=== PATIENT | female | born 1990 | race Caucasian/White ===

== ENCOUNTER → 2018-04-15 | Outpatient (CLI) | payer OTHER ==
[2018-04-15 17:31] LABS: BASO % 0.3 % (0.0-1.0); EOS # 0.2 10^3/uL (0.0-0.50); EOS % 1.4 % (0.0-3.0); HEMATOCRIT 40.6 % (36.0-47.0); HEMOGLOBIN 13.6 g/dl (12.0-15.5); IMMATURE GRANULOCYTE % 0.4 % (0-3.0); LYMPH # 2.7 10^3/uL (1.5-6.5); LYMPH % 23.9 % (24.0-44.0); MEAN CORPUSCULAR HGB CONC 33.5 g/dl (32.0-36.5); MEAN CORPUSCULAR VOLUME 89.6 fl (80.0-96.0); MONO # 0.6 10^3/uL (0.0-0.8); MONO % 5.2 % (0.0-5.0); NEUTROPHILS # 7.8 10^3/uL (1.8-7.7); NEUTROPHILS % 68.8 % (36.0-66.0); PLATELET COUNT, AUTOMATED 304 10^3/uL (150-450); RED BLOOD COUNT 4.53 10^6/uL (4.00-5.40); RED CELL DISTRIBUTION WIDTH 12.1 % (11.5-14.5); WHITE BLOOD COUNT 11.3 10^3/uL (4.0-10.0)
[2018-04-15 17:44] LABS: ALT/SGPT 18 U/L (12-78); AST/SGOT 12 U/L (7-37); BILIRUBIN,TOTAL 0.3 MG/DL (0.2-1.0); CREATININE FOR GFR 0.54 MG/DL (0.55-1.30); GLOMERULAR FILTRATION RATE > 60.0 (>60); LDH LACTATE DEHYDROGENASE 162 U/L (84-246); URIC ACID 2.4 MG/DL (2.6-6.0)
[2018-04-15 17:51] LABS: TOTAL PROTEIN,RANDOM URINE 14.5 MG/DL (0.0-12.0)
[2018-04-15 19:46] LABS: CHLAMYDIA DNA AMPLIFICATION NEGATIVE (NEGATIVE); GC DNA AMPLIFICATION NEGATIVE (NEGATIVE)
[2018-04-18 09:12] LABS: RUBELLA IgG QUALITATIVE IMMUNE (IMMUNE)
[2018-04-18 09:15] LABS: HBsAg Prenatal NEGATIVE (NEGATIVE)
[2018-04-18 09:42] LABS: HEPATITIS C VIRUS ABY INDEX 0.1 INDEX (<0.8)
[2018-04-18 09:43] LABS: HIV 1&2 SCREEN CENTAUR NEGATIVE (NEGATIVE)
== END ==
LOC: M SMT 13:49
DX: Z34.81 Encounter for supervision of other normal pregnancy, first trimester (principal); O16.1 Unspecified maternal hypertension, first trimester; Z3A.10 10 weeks gestation of pregnancy
CPT/HCPCS: 84460

== ENCOUNTER → 2018-08-31 | Outpatient (CLI) | payer OTHER ==
[2018-08-31 13:35] LABS: BASO % 0.2 % (0.0-1.0); EOS # 0.2 10^3/uL (0.0-0.50); EOS % 1.6 % (0.0-3.0); HEMATOCRIT 37.5 % (36.0-47.0); HEMOGLOBIN 12.2 g/dl (12.0-15.5); IMMATURE GRANULOCYTE % 1.5 % (0-3.0); LYMPH % 16.3 % (24.0-44.0); MEAN CORPUSCULAR HEMOGLOBIN 30.2 pg (27.0-33.0); MEAN CORPUSCULAR HGB CONC 32.5 g/dl (32.0-36.5); MEAN CORPUSCULAR VOLUME 92.8 fl (80.0-96.0); MONO # 0.6 10^3/uL (0.0-0.8); MONO % 5.2 % (0.0-5.0); NEUTROPHILS # 9.3 10^3/uL (1.8-7.7); NEUTROPHILS % 75.2 % (36.0-66.0); PLATELET COUNT, AUTOMATED 289 10^3/uL (150-450); RED BLOOD COUNT 4.04 10^6/uL (4.00-5.40); RED CELL DISTRIBUTION WIDTH 11.9 % (11.5-14.5); WHITE BLOOD COUNT 12.4 10^3/uL (4.0-10.0)
[2018-08-31 13:45] LABS: GLUCOSE CHALLENGE TEST 1 HOUR 70 MG/DL (LESS THAN 140)
== END ==
LOC: M SMT 08:59
DX: Z34.83 Encounter for supervision of other normal pregnancy, third trimester (principal); Z36.89 Encounter for other specified antenatal screening; Z3A.30 30 weeks gestation of pregnancy
CPT/HCPCS: 82950

== ENCOUNTER → 2018-09-19 | Outpatient (CLI) | payer OTHER | LOC: M SMT 11:02 | DX: Z34.83 Encounter for supervision of other normal pregnancy, third trimester (principal); Z3A.33 33 weeks gestation of pregnancy | CPT/HCPCS: 76816 ==

== ENCOUNTER → 2018-10-04 | Outpatient (REF) | payer OTHER | LOC: M LAB REF 13:03 | PROVIDERS: ATTEND Advanced Practice Midwife | DX: Z34.83 Encounter for supervision of other normal pregnancy, third trimester (principal) ==

== ENCOUNTER 2018-10-29 05:01 | Inpatient (IN) | payer OTHER ==
[2018-10-29] VITALS (39 sets, daily range): BP systolic 107–186; BP diastolic 54–97
[~2018-10-29] VITALS: Ht 180.3 cm; Wt 128.8 kg
[2018-10-29] MEDS ORDERED: LACTATED RINGER'S 1000 ML IV STA (05:44)
[2018-10-29] MEDS ORDERED: LR 1,000 ML IV SCH (05:44)
[2018-10-29] MEDS ORDERED: OXYTOCIN DRIP 30 UNITS in APPROPRIATE DILUENT 1 EA IV SCH ×2 (05:45→13:42)
--- NOTE | 2018-10-29 05:58 | HPEPDOC ---
Obstetrical History & Physical General Date of Admission Oct 29, 2018 at 05:44 History of Present Illness Chief Complaint: LOF, term Information Provided By: Patient Age: 28 : 2 Term: 0 Pre-term: 1 Abortions: 0 Livin Care Care: Limited Care Dating Final EDC: Nov 05, 2018 Final EDC by: LMP EGA at Admission: 39 Antepartum Course Height (inches): 71 Pre- weight (lbs.): 232 Admission Weight (lbs.): 288 Past Medical History Past Obstetrical History : Past Obstetrical History: Primgravida (11/2016) Type of Delivery: Spontaneous Vaginal Del. Sex of : Male (6#12) Complications: Yes (PPROM @ 36 wks) ST[employer] History: No pertinent history Past Medical History Surgical History: Denies/None Family History Significant Family History: Diabetes, Heart disease Social History Marital Status: Family situation: Spouse/partner home Psychosocial History: No pertinent psych hx * Smoker: non-smoker Alcohol: Denies Drugs: denies Imunizations Tdap status: current Influenza Status: current Physical Examination Physical Examination GENERAL: Alert and oriented times three. BREAST: . ABDOMEN: Gravid and non-tender to touch. FETUS: Is vertex (VTX) by sterile vaginal examination (SVE), fetus is vertex (VTX) by Sg. HEART RATE: Regular rate and rhythm. LUNGS: Clear to auscultation (CTA). EXTREMITIES: No edema. No clonus. Deep tendon reflexes (DTRs) + 2. Pertinent Laboratoy Data Blood Type: A+ RBC Antibody Screen: Negative HIV: Negative Hepatitis B: Negative Hepatitis C: Negative Rapid Plasma Reagin: Nonreactive Rubella: Immune Chlamydia/Gonorrhea: Negative Group B Streptococcus: Negative Glucose Tolerance Test: 70 Anatomy Ultrasound Ultrasound Date: Jun 17, 2018 Placenta Location: Posterior Normal Anatomy: Yes Placenta Previa: No Estimated Weight (grams): 315 Other Ultrasounds 04/15/18 - dating 10+6 Steroid Therapy Steroid Therapy: No Vaginal Examination Dilation: 3 cm Effacement: 90% Station: -1 Cervical Consistency: Medium Cervical Position: Middle Presentation: Cephalic presentation Assessment Heart Rate (FHR): 150 Variability: Moderate Accelerations: Positive Decelerations: None Tocometer Contractions: Yes Frequency: irregular, every 3-7 min. Duration: less than 60 seconds Strength: palpated as moderate Assessment/Plan Assessment Breanne is a 28-year-old (G)2 para (P)0-1-0-1 at 39 weeks by 10-week trasocuco. Presents to Labor and Delivery (L&D) with reports of loss of clear fluid 0100 followed by onset irregular UC. Denies bleeding. Fetus active. Initial BP 139/95 Plan Admit and orient. Clerical Support Specialist and consent. Diet: clear liquids. Group B Streptococcus (GBS) negative. Labs and intravenous (IV) per unit protocol. Counseled on Pitocin and induction of labor (IOL). Lactated Ringers (LR): Bolus 500 mL, then at 125 mL/hr. Pt plans epidural Anticipate normal spontaneous delivery (). C-S as appropriate. Gracie Sanchez CNM Oct 29, 2018 05:58
[2018-10-29 07:02] LABS: HEMATOCRIT 37.3 % (36.0-47.0); HEMOGLOBIN 12.2 g/dl (12.0-15.5); MEAN CORPUSCULAR HGB CONC 32.7 g/dl (32.0-36.5); MEAN CORPUSCULAR VOLUME 88.6 fl (80.0-96.0); PLATELET COUNT, AUTOMATED 317 10^3/uL (150-450); RED BLOOD COUNT 4.21 10^6/uL (4.00-5.40)
[2018-10-29 07:22] LABS: TOTAL PROTEIN,RANDOM URINE 28.1 MG/DL (0.0-12.0)
[2018-10-29] MEDS ORDERED: FENTANYL 2MCG/ML ROPIVACAINE 0.2% IN 0.9% NACL 100ML IVBAG As Ordered ONE (07:22)
[2018-10-29 07:29] LABS: ALT/SGPT 16 U/L (12-78); BILIRUBIN,TOTAL 0.2 MG/DL (0.2-1.0); GLOMERULAR FILTRATION RATE > 60.0 (>60); LDH LACTATE DEHYDROGENASE 250 U/L (84-246); URIC ACID 3.4 MG/DL (2.6-6.0)
[2018-10-29] MEDS ORDERED: REFRIGERATOR IV KEYS XX PRN (07:30)
[2018-10-29] MEDS ORDERED: NALOXONE INJ 0.4 MG/1 ML VIAL (J2310) IV PRN (07:30)
[2018-10-29] MEDS ORDERED: ePHEDrine SULFATE 25 MG/5 ML(5MG/ML) SYRINGE IV PRN (07:30)
[2018-10-29] MEDS ORDERED: FENTANYL/ROPIVACAINE/NACL BAG 100 ML EPIDURAL SCH (07:30)
[2018-10-29] MEDS ORDERED: EPIDURAL/PCA KEYS XX PRN (07:30)
[2018-10-29] MEDS ORDERED: ONDANSETRON 4MG/2ML VIAL (J2405) IV PRN (07:30)
[2018-10-29] MEDS ORDERED: LACTATED RINGER'S 1000 ML IV PRN (07:30)
[2018-10-29] MEDS ORDERED: EPIDURAL COMMENT XX SCH (07:30)
[2018-10-29] MEDS ORDERED: diphenhydrAMINE INJ 50MG/ML VIAL (J1200) IV PRN (07:30)
[2018-10-29] MEDS ORDERED: PRENTAB9 PO (07:48)
[2018-10-29] MEDS: PRENATAL VITAMINS CHEWABLE TABLET PO SCH (09:00)
[2018-10-29] MEDS ORDERED: METHYLERGONOVINE MALEATE 0.2 MG TAB PO PRN (13:45)
[2018-10-29] MEDS ORDERED: ACETAMINOPHEN 500 MG TAB PO PRN (13:45)
[2018-10-29] MEDS ORDERED: DOCUSATE SODIUM 100 MG CAP PO PRN (13:45)
[2018-10-29] MEDS ORDERED: MEASLES,MUMPS,RUBELLA VACCINE INJ (MMR-II) (90707) SC SCH (13:45)
[2018-10-29] MEDS ORDERED: RHOGAM 300 MCG (1500 IU) INJ (J2790) IM SCH (13:45)
[2018-10-29] MEDS ORDERED: DIBUCAINE 1% OINTMENT 30GM TOP PRN (13:45)
[2018-10-29] MEDS ORDERED: MOM 30ML SUSPENSION UDC PO PRN (13:45)
[2018-10-30 06:00] VITALS: BP 144/78
--- NOTE | 2018-10-30 06:32 | DN ---
DATE OF DELIVERY: 10/29/2018 TIME OF : 1300 hours. GENDER: Female. SCORE: 8 and 9. WEIGHT: 4130 grams or 9 pounds 2 ounces. LACERATIONS: Second degree midline laceration. ESTIMATED BLOOD LOSS: 300 mL. COUNTS: 5 laparotomy sponges accounted for prior to and after delivery, 1 sharp removed from delivery field. ANESTHESIA: Epidural. DELIVERY NOTE: On 10/29/2018, at 1300 hours, Mrs. Hadley, a 28-year-old, 2, now para 2, had a spontaneous vaginal delivery of a liveborn female infant, score 8 and 9, weight was 4130 grams or 9 pounds 2 ounces. Head was delivered left occiput anterior (ELMA) followed by delivery of right anterior shoulder, left posterior shoulder and corpus. Cord was clamped times two. It was cut by the father of the baby under my direction. Infant was handed to mom with a good cry. Cord blood was obtained and placenta was then drained and delivered grossly intact. A premixed bag of 500 mL of normal saline with 30 units of Pitocin was bolused along with uterine massage until the uterus was firm. On inspection, there was a second degree midline laceration, which was repaired with #3-0 Vicryl Rapide. On re-inspection, the cervix, vagina and perineum was grossly intact and hemostatic. Mom and baby recovered in stable condition.
--- NOTE | 2018-10-30 07:59 | NUR ---
PPD#1 S: Doing well w/o complaints. Decreasing lochia, pain well control, + voids and + BF. O: vss, AF Gen: well appearing abd: soft, nttp with ff@u-1 A/P: PPD#1 s/p - stable -continue routine care -d/c plans for tomorrow Caren Thao MD
[2018-10-30] MEDS: PRENATAL VITAMINS CHEWABLE TABLET PO SCH (08:33)
[2018-10-30] MEDS: IBUPROFEN 800 MG TAB PO PRN ×2 (08:34→19:50)
[2018-10-30 18:00] VITALS: BP 140/79
[2018-10-31 05:49] VITALS: BP 145/85
[2018-10-31 08:03] LABS: HEMOGLOBIN 11.2 g/dl (12.0-15.5); MEAN CORPUSCULAR HEMOGLOBIN 29.2 pg (27.0-33.0); MEAN CORPUSCULAR VOLUME 91.1 fl (80.0-96.0); PLATELET COUNT, AUTOMATED 258 10^3/uL (150-450); RED BLOOD COUNT 3.84 10^6/uL (4.00-5.40); WHITE BLOOD COUNT 11.9 10^3/uL (4.0-10.0)
[2018-10-31] MEDS: PRENATAL VITAMINS CHEWABLE TABLET PO SCH (08:26)
[2018-10-31 08:27] LABS: ALT/SGPT 21 U/L (12-78); BILIRUBIN,TOTAL 0.1 MG/DL (0.2-1.0); CREATININE FOR GFR 0.56 MG/DL (0.55-1.30); GLOMERULAR FILTRATION RATE > 60.0 (>60); LDH LACTATE DEHYDROGENASE 232 U/L (84-246); URIC ACID 3.6 MG/DL (2.6-6.0)
[2018-10-31 10:00] VITALS: BP 144/102
[2018-10-31 10:25] VITALS: BP 146/82
[2018-10-31] MEDS ORDERED: MAPA500T2 PO (10:43)
[2018-10-31] MEDS ORDERED: COLA100C5 PO (10:43)
[2018-10-31] MEDS ORDERED: IBUP-1114 PO (10:43)
== END 2018-10-31 12:50 | disposition home or self-care (01) | DRG 560 ==
LOC: M LDO 05:01 → M LDI 05:44 → M OBS 15:45
PROVIDERS: ADMIT Advanced Practice Midwife; ATTEND Obstetrics & Gynecology
PROC: 10E0XZZ Delivery of Products of Conception, External Approach (ICD-10-PCS; principal; 2018-10-29)
PROC: 0KQM0ZZ Repair Perineum Muscle, Open Approach (ICD-10-PCS; 2018-10-29)
DX: O70.1 Second degree perineal laceration during delivery (principal); Z3A.39 39 weeks gestation of pregnancy; Z37.0 Single live birth

== ENCOUNTER → 2022-06-17 | Outpatient (REF) | payer OTHER ==
[~2022-06-17] MED LIST: COLA100C5 PO; IBUP-1114 PO; MAPA500T2 PO; PRENTAB9 PO
== END ==
LOC: M PLALAB 15:10
PROVIDERS: ATTEND Obstetrics & Gynecology
DX: Z12.4 Encounter for screening for malignant neoplasm of cervix (principal); R87.615 Unsatisfactory cytologic smear of cervix

== ENCOUNTER → 2022-09-16 | Outpatient (CLI) | payer OTHER ==
[2022-09-16 13:22] LABS: BASO # 0.1 10^3/uL (0.0-0.2); BASO % 0.6 % (0.0-1.0); EOS # 0.3 10^3/uL (0.0-0.5); EOS % 3.1 % (0.0-3.0); HEMATOCRIT 41.3 % (36.0-47.0); HEMOGLOBIN 13.4 g/dl (12.0-15.5); LYMPH # 3.2 10^3/uL (1.5-5.0); LYMPH % 35.7 % (24.0-44.0); MEAN CORPUSCULAR HEMOGLOBIN 29.9 pg (27.0-33.0); MEAN CORPUSCULAR HGB CONC 32.4 g/dl (32.0-36.5); MEAN CORPUSCULAR VOLUME 92.2 fl (80.0-96.0); MONO # 0.4 10^3/uL (0.0-0.8); MONO % 4.5 % (2.0-8.0); NEUTROPHILS % 55.8 % (36.0-66.0); PLATELET COUNT, AUTOMATED 336 10^3/uL (150-450); RED BLOOD COUNT 4.48 10^6/uL (4.00-5.40); WHITE BLOOD COUNT 8.9 10^3/uL (4.0-10.0)
== END ==
LOC: M LAB 11:46
DX: D89.40 Mast cell activation, unspecified (principal)

== ENCOUNTER → 2022-09-18 | Outpatient (REF) | payer OTHER | LOC: M LAB REF 14:40 | DX: D89.40 Mast cell activation, unspecified (principal) ==